=== PATIENT | male | born 1950 | race Caucasian/White ===

== ENCOUNTER → 2016-09-08 | Outpatient (CLI) | payer OTHER, MEDICARE ==
[~2016-09-08] VITALS: Ht 185.4 cm; Wt 106.6 kg
[~2016-09-08] MED LIST: ATORVASTATIN CA40 MG PO; FISH OIL 1,001000 M2 PO; IRON325 PO; LASIX 40 MG TAB40 M2 PO; LISINOPRIL20 MG PO; METFORMIN HCL500 MG PO; MULTAQ400 MG PO; MULTI VITAMIN1 EACH PO; NORVASC5 MG PO; PACERONE 200 M200 M1 PO; PAXIL10 MG PO; PRADAXA150 MG PO; TENORMIN50 MG PO; TRICOR145 MG PO; VENTOLIN HFA 1818 GM INH; VITAMINC500 PO; XANAX1 MG PO; ZANTAC 150MG T150 MG PO
--- NOTE | ~2016-09-08 | EKG ---
[address] [facility] [place] [address] ELECTROCARDIOGRAM REPORT Name: FRANKY BARKSDALE [facility] [id number] Admission: 09/08/16 Attend Phys: Charles Beard MD Discharge: Date of : 46 Report #: [id number] THIS REPORT FOR: //name// [facility] Test Date: 2016-09-08 Test Time: 08:45:00 Pat Name: FRANKY BARKSDALE Department: Room: Gender: Probate Judge: Coco RUBIN : 1950 Requested By: Charles Beard Order Number: [id number] MD: Measurements Intervals [place] Rate: 56 P: 47 HI: 230 QRS: -17 QRSD: 109 T: 28 QT: 524 QTc: 506 Interpretive Statements Sinus rhythm Prolonged HI interval Probable left atrial enlargement Borderline left axis deviation Borderline ST depression, anterolateral leads Prolonged QT interval Compared to ECG 04/29/2016 08:18:04 First degree AV block now present ST (T wave) deviation still present [email or web address] By: [id number] Epiphany Epiphany, /EPI
--- NOTE | ~2016-09-08 | P ---
[facility] [address] [address] PROCEDURE REPORT Name: FRANKY BARKSDALE [facility] [id number] Admission: 09/08/16 Attend Phys: Charles Beard MD Discharge: Date of : 46 Report #: [id number] THIS REPORT FOR: //name// CC: Charles Griffith DATE OF SERVICE: 09/08/2016 PREOPERATIVE DIAGNOSIS: Atrial fibrillation. POSTOPERATIVE DIAGNOSIS: Atrial fibrillation. DESCRIPTION OF PROCEDURE: The patient was brought to the procedure suite in fasting and sedated state. After time-out, he was sedated by the anesthesiology service and then underwent a 200 joule synchronized cardioversion with jew of sinus rhythm. There were no complications. CONCLUSIONS: Successful cardioversion of atrial fibrillation to sinus rhythm. By: [id number] Charles Beard MD /nt
--- NOTE | ~2016-09-08 | H ---
[facility] [place] [address] HISTORY AND PHYSICAL Name: FRANKY BARKSDALE Room #: REG DEBBIE Matthews.#: [id number] Admission: 09/08/16 Attend Phys: Charles Beard MD Discharge: Date of : 46 Report #: [id number] THIS REPORT FOR: //name// CC: Charles Beard Hao Griffith DATE OF SERVICE: 09/08/2016 REASON FOR HISTORY AND PHYSICAL: AFib, here for cardioversion. HISTORY OF PRESENT ILLNESS: The patient is a 65-year-old with AFib ablation times 2 with recurrent AFib here for cardioversion. He reports that he is doing well and he has been on his amiodarone, tolerating this well. He has also been taking his Pradaxa as prescribed. REVIEW OF SYSTEMS: GENERAL: No fevers or chills. HEENT: No blurred vision. CARDIOVASCULAR: No chest pain. PULMONARY: No productive cough. GASTROINTESTINAL: No nausea, vomiting. GENITOURINARY: No dysuria. MUSCULOSKELETAL: No myalgias, arthralgias. PAST MEDICAL HISTORY: 1. AFib, status post ablation times 2. 2. Diabetes. 3. Hypertension. 4. Prior DVT, on Coumadin. 5. PVC ablation by Dr. Bee at [facility] 30 years ago. 6. Multiple transient ischemic attacks. 7. Echo 05/2015, EF 45-50%. 8. Nuclear stress test 05/2015, EF 47%, no ischemia or infarction. SOCIAL HISTORY: He does not smoke. FAMILY HISTORY: Noncontributory. ALLERGIES: None. MEDICATIONS: Reviewed include atenolol, Pradaxa, atorvastatin, fenofibrate, lisinopril, metformin, Norvasc, ranitidine, Xanax and amiodarone. PHYSICAL EXAMINATION: VITAL SIGNS: Today were stable. GENERAL: He is in no acute distress. [facility] [address] [place] [address] HISTORY AND PHYSICAL Name: FRANKY BARKSDALE Room #: REG [facility].#: [id number] Admission: 09/08/16 Attend Phys: Charles Beard MD Discharge: Date of : 46 Report #: [id number] HEENT: Oropharynx clear. NECK: Supple. No thyromegaly. HEART: Irregularly irregular with no murmurs, rubs or gallops. LUNGS: Clear bilaterally. ABDOMEN: Soft, nontender, nondistended. EXTREMITIES: There is no clubbing, cyanosis, edema. NEUROLOGIC: Cranial nerves 2-12 are intact. Telemetry shows atrial fibrillation with a controlled response. LABORATORY DATA: Reviewed and were within normal limits. ASSESSMENT AND PLAN: The patient is a 65-year-old here for a direct current cardioversion. Risks and benefits were reviewed and we will proceed. By: [id number] Charles Beard MD /nt
[2016-09-08 07:50] VITALS: BP 141/64
[2016-09-08 08:01] LABS: HEMATOCRIT 46.4 % (42.0-52.0); HEMOGLOBIN 15.8 gm/dL (14.0-18.0); MCH 29.4 pg (26.0-34.0); MCV 86.3 fL (80.0-100.0); RBC 5.38 mil/uL (4.50-6.00); RDW 15.2 % (10.5-14.5); WBC 6.6 thou/uL (4.0-11.0)
[2016-09-08 08:10] LABS: CALCIUM 8.4 mg/dL (8.5-10.1); CREATININE 1.3 mg/dL (0.7-1.3); POTASSIUM 3.9 mmol/L (3.5-5.1)
[2016-09-08 08:13] LABS: INR 1.2; PROTIME 12.9 Seconds (9.3-11.4)
[2016-09-08 08:15] LABS: ALBUMIN 3.5 g/dL (3.4-5.0); TOTAL BILIRUBIN 0.8 mg/dL (<0.1-1.0); TOTAL PROTEIN 6.5 g/dL (6.4-8.2)
== END ==
LOC: CATH 07:27
PROVIDERS: Internal Medicine Cardiovascular Disease
DX: I48.91 Unspecified atrial fibrillation (principal)
CPT/HCPCS: 62110; 62900

== ENCOUNTER → 2018-10-11 | Outpatient (CLI) | payer OTHER, MEDICARE | LOC: RAD 11:43 | DX: I11.9 Hypertensive heart disease without heart failure (principal); J98.11 Atelectasis ==

== ENCOUNTER → 2021-03-19 | Outpatient (CLI) | payer OTHER | LOC: CAT 09:01 | PROVIDERS: ATTEND Internal Medicine Cardiovascular Disease | DX: Z13.6 Encounter for screening for cardiovascular disorders (principal) ==